=== PATIENT | female | born 1955 | race Caucasian/White ===

== ENCOUNTER → 2022-11-03 08:46 | Outpatient (BNVA) | payer MEDICARE, SELFPAY | PROVIDERS: PCP Internal Medicine; Visit Provider Hospitalist | DX: J45.20 Mild intermittent asthma, uncomplicated (principal); J30.9 Allergic rhinitis, unspecified; R05.3 Chronic cough | CPT/HCPCS: 99202 ==

== ENCOUNTER 2023-05-30 08:23 | Outpatient (AMB) | payer MEDICARE, SELFPAY ==
[2023-05-30 08:36] VITALS: BP 126/70; PULSE 82; O2SAT 96; BMI 27.4
--- NOTE | 2023-05-30 08:36 | A.OFFVIS_ITS ---
Intake Vital Signs 05/30/23 08:36 Height 5 ft 7.5 in Weight 177 lb 7.554 oz BMI 27.4 BP 126/70 Blood Pressure Location Lt brachial Position Sitting Pulse 82 Pulse Source Pulse Oximeter Pulse Oximetry (%) 96 Oxygen Delivery Method Room Air Intake Visit Reasons: Asthma Pr Manager Required: No Allergies No Known Allergies Allergy (Verified 05/30/23 08:39) HPI HPI Comments History of Present Illness Details The patient is a 67 year woman with a known history of asthma who is here for a initial evaluation. The patient states that she has had lifelong asthma and allergies. She has received allergy shots for many years by a local photo tube assembler will now is . She is maintained on Singulair and at times she does take Zyrtec specially when she is in [place]. Sometime in May she developed a viral syndrome that resulted in asthma exacerbation. The patient was evaluated by primary care doctor and provide medications and she did recover. Since then she has been doing okay although with the allergies now the springtime she is having significant postnasal drip and cough. The cough is moderate severity. Typically worse when she lies flat. She has tried nasal rinsing before but she had difficulties tolerating it. She does use Flonase although she does not like to use a lot of medications. As far as studies to review she did have PFTs back in 2020 demonstrating small airways disease suggestive of her diagnosis of asthma. Her FEV1 to FVC pre bronchodilators with actually 71% and she did improved to 77% post bronchodilators. Patient also had a chest x-ray demonstrating no acute disease. She did have a sinus x-ray as well demonstrating interval resolution of the air fluid level in the maxillary sinus suggesting previous sinusitis. She does have significant rhinitis and asthma although she denies any eczema to suggest atopy. 05/30/2023 the patient is here for mik blunt follow-up visit. She very well. She has not had to use her rescue inhaler. She does continue to use her Singulair every night. She does complaint of a persistent cough. She actually does mi to much disease gotten better but her always is concerned about it. Her cough still tends to be worse at nighttime specially when she lays flat. Is consistent with an upper airway cough syndrome. The patient does have a septal deviation and also significant postnasal drip. She does have nasal sprays that she uses as needed. Seems like she is doing okay right now. She does use cough drops which time to help. I do believe for the upper airway cough syndrome she consider Sudafed if her blood pressure can tolerate it in addition to that the use of Tessalon Perles may also be helpful. I did give her a script that she can get failed with good Rx card. No recent imaging to rev iew. Clinically the patient is doing well. We did talk about vaccines. She needs to make sure she gets her flu shot and make sure she is up-to-date with her pneumonia shot she is going to see her primary care doctor tomorrow. [facility] Medical History (Updated 11/05/22 @ 21:37 by Mitchel Vincent MD) Cough Chronic allergic rhinitis Asthma Social History (Updated 11/03/22 @ 08:55 by LORENZO Smith) Patient Tobacco Use Status: Former Tobacco user Tobacco use type: Cigarette Years Smoked: 10 Years Review of Systems Const Denies fever(s) Eyes Denies change in vision ENT Reports nasal congestion, Reports nasal discharge and Reports post nasal drip Card Denies chest pain Resp Reports cough GI Reports dyspepsia Musc Reports no additional complaints Skin/Breast Denies rash Neuro Reports no additional complaints Jesus Manuel/Lymph Denies lymphadenopathy Physical Exam Vital Signs: Last Vital Signs Pulse 82 05/30/23 08:36 BP 126/70 05/30/23 08:36 Pulse Ox 96 05/30/23 08:36 Oxygen Delivery Method Room Air 05/30/23 08:36 BMI result Body Mass Index 27.4 Const General: comfortable HEENT Head: Yes normocephalic Throat: Yes posterior oropharynx abnormal and Yes postnasal drainage Eyes General: appearance normal, both eyes and all related structures Neck Neck: Yes supple Chest Chest palpation & inspection: normal inspection of the chest Resp Effort & Inspection: normal respiratory effort Auscultation: clear to auscultation bilaterally and no wheezes Cardio Rate: regular rate Rhythm: regular rhythm Heart sounds: S1 normal heart sound present and S2 normal heart sound present GI Palpation (GI): Soft to palpation Skin General skin exam: no rashes or lesions noted Extrem General: Yes no clubbing, cyanosis or edema Assessment & Plan Assessment & Plan (1) Asthma: Code(s): J45.909 - Unspecified asthma, uncomplicated Qualifiers: Asthma complication type: uncomplicated Asthma persistence: intermittent Asthma severity: mild Qualified Code(s): J45.20 - Mild intermittent asthma, uncomplicated (2) Chronic allergic rhinitis: Code(s): J30.9 - Allergic rhinitis, unspecified (3) Cough: Code(s): R05.9 - Cough, unspecified Qualifiers: Cough type: chronic Qualified Code(s): R05.3 - Chronic cough Plan FRANCESCO as needed tessalon pearls as needed continue singulair continue Fluticasone nasal spray continue Astelin nasal spray consider Nasal rinsing, stop if minimal return due to nasal septal deviation Needs her flu shots and make sure she is up to date with her pneumonia vaccine F/U 12-18 months Medications: New benzonatate 200 mg PO BID 30 days PRN 30 caps 0RF cough benzonatate 200 mg PO BID 30 days PRN 30 caps 6RF cough Coding Level of Care Code Est Pt Level 4 (11266) Diagnoses Mild intermittent asthma without complication J45.20 Asthma complication type: uncomplicated Asthma persistence: intermittent Asthma severity: mild Chronic allergic rhinitis J30.9 Chronic cough R05.3 Cough type: chronic Time Spent (min) 17
== END 2023-05-30 08:54 | disposition home or self-care (01) ==
PROVIDERS: PCP Internal Medicine; Visit Provider Hospitalist
DX: J45.20 Mild intermittent asthma, uncomplicated (principal); J30.9 Allergic rhinitis, unspecified; R05.3 Chronic cough
CPT/HCPCS: 99214

== ENCOUNTER → 2023-05-30 08:23 | Outpatient (BNVA) | payer MEDICARE, SELFPAY | PROVIDERS: PCP Internal Medicine; Visit Provider Hospitalist | DX: J45.20 Mild intermittent asthma, uncomplicated (principal); J30.9 Allergic rhinitis, unspecified; R05.3 Chronic cough | CPT/HCPCS: 99212 ==

== ENCOUNTER 2025-01-05 08:35 | Outpatient (AMB) | payer MEDICARE, SELFPAY ==
[2025-01-05 08:37] VITALS: BP 110/70; PULSE 75; O2SAT 95; BMI 28.9
--- NOTE | 2025-01-05 08:37 | MHC.OFFVIS ---
Vital Signs 01/05/25 08:37 Height 5 ft 7.5 in Weight 187 lb 6.287 oz BMI 28.9 BP 110/70 Blood Pressure Location Lt brachial Position Sitting Pulse 75 Pulse Source Pulse Oximeter Pulse Oximetry (%) 95 Oxygen Delivery Method Room Air Intake Visit Reasons: Asthma Sap Hana Architect Required: No Accompanied by: Self / Same As Patient Allergies No Known Allergies Allergy (Verified 01/05/25 08:41) HPI Comments Details: The patient is a 69 year woman with a known history of asthma who is here for a initial evaluation. The patient states that she has had lifelong asthma and allergies. She has received allergy shots for many years by a local electrical cad technician will now is . She is maintained on Singulair and at times she does take Zyrtec specially when she is in [place]. Sometime in May she developed a viral syndrome that resulted in asthma exacerbation. The patient was evaluated by primary care doctor and provide medications and she did recover. Since then she has been doing okay although with the allergies now the springtime she is having significant postnasal drip and cough. The cough is moderate severity. Typically worse when she lies flat. She has tried nasal rinsing before but she had difficulties tolerating it. She does use Flonase although she does not like to use a lot of medications. As far as studies to review she did have PFTs back in 2020 demonstrating small airways disease suggestive of her diagnosis of asthma. Her FEV1 to FVC pre bronchodilators with actually 71% and she did improved to 77% post bronchodilators. Patient also had a chest x-ray demonstrating no acute disease. She did have a sinus x-ray as well demonstrating interval resolution of the air fluid level in the maxillary sinus suggesting previous sinusitis. She does have significant rhinitis and asthma although she denies any eczema to suggest atopy. 05/30/2023 the patient is here for pulmonary follow-up visit. She very well. She has not had to use her rescue inhaler. She does continue to use her Singulair every night. She does complaint of a persistent cough. She actually does mi to much disease gotten better but her always is concerned about it. Her cough still tends to be worse at nighttime specially when she lays flat. Is consistent with an upper airway cough syndrome. The patient does have a septal deviation and also significant postnasal drip. She does have nasal sprays that she uses as needed. Seems like she is doing okay right now. She does use cough drops which time to help. I do believe for the upper airway cough syndrome she consider Sudafed if her blood pressure can tolerate it in addition to that the use of Tessalon Perles may also be helpful. I did give her a script that she can get failed with good Rx card. No recent imaging to review. Clinically the patient is doing well. We did talk about vaccines. She needs to make sure she gets her flu shot and make sure she is up-to-date with her pneumonia shot she is going to see her primary care doctor tomorrow. 01/05/2025 the patient is here for pulmonary follow-up visit. Since we last spoke the patient has had a worsening cough for the last several months. It started in [place] back in the winter and has not subsided. Moderate severity. For the most part nonproductive cough. She feels she does have raspiness of the voice. She does have significant nasal congestion. She did go her see her primary care doctor when she arrived from [place] and he she was diagnosed with sinusitis. She was given a course of amoxicillin and also some prednisone. She had been already on a couple courses of prednisone. Not significantly better. She also has not been able to use her respiratory therapy since she did not get her inhaler approve. On exam she does have significant postnasal drip. The patient will start treatment for chronic rhinitis and upper airway cough syndrome with Sudafed and also continue her Zyrtec. She should start fluticasone nasal spray. Will go ahead and start her on Dulera for her asthma. The patient will follow-up in a 3 months. If she is not better she will call for further evaluation. [facility] Medical History (Updated 11/05/22 @ 21:37 by Mitchel Vincent MD) Cough Chronic allergic rhinitis Asthma Social History Patient Tobacco Use Status: Former Tobacco user Tobacco use type: Cigarette Years Smoked: 10 Years Review of Systems Const Denies fever(s) Eyes Denies change in vision ENT Reports nasal congestion, Reports nasal discharge and Reports post nasal drip Card Denies chest pain Resp Reports cough GI Reports dyspepsia Musc Reports no additional complaints Skin/Breast Denies rash Neuro Reports no additional complaints Jesus Manuel/Lymph Denies lymphadenopathy Physical Exam Vital Signs: Last Vital Signs Pulse 75 01/05/25 08:37 BP 110/70 01/05/25 08:37 Pulse Ox 95 01/05/25 08:37 Oxygen Delivery Method Room Air 01/05/25 08:37 BMI result Body Mass Index 28.9 Const General: comfortable HEENT Head: Yes normocephalic Throat: Yes posterior oropharynx abnormal and Yes postnasal drainage Eyes General: appearance normal, both eyes and all related structures Neck Neck: Yes supple Chest Chest palpation & inspection: normal inspection of the chest Resp Effort & Inspection: normal respiratory effort Auscultation: clear to auscultation bilaterally and no wheezes Cardio Rate: regular rate Rhythm: regular rhythm Heart sounds: S1 normal heart sound present and S2 normal heart sound present GI Palpation (GI): Soft to palpation Skin General skin exam: no rashes or lesions noted Extrem General: Yes no clubbing, cyanosis or edema Assessment & Plan Assessment & Plan (1) Asthma: Code(s): J45.909 - Unspecified asthma, uncomplicated Category: Medical Qualifiers: Asthma complication type: uncomplicated Asthma persistence: intermittent Asthma severity: mild Qualified Code(s): J45.20 - Mild intermittent asthma, uncomplicated (2) Chronic allergic rhinitis: Code(s): J30.9 - Allergic rhinitis, unspecified Category: Medical (3) Cough: Code(s): R05.9 - Cough, unspecified Category: Medical Qualifiers: Cough type: chronic Qualified Code(s): R05.3 - Chronic cough Plan FRANCESCO as needed tessalon pearls as needed continue singulair continue Fluticasone nasal spray start pseudophed start Doxycycline start Dulera HFA F/U 3-4 months Medications: New fluticasone propionate 50 mcg/actuation (Flonase Allergy Relief) administer into each nostril 2 sprays intranasal DAILY 15.8 mL 12RF 30 days codeine-guaifenesin 10-100 mg/5 mL 10 mL PO Q6H PRN 300 mL 0RF cough 10 days mometasone-formoterol 100-5 mcg/actuation (Dulera) 2 puffs inhalation Q12H 13 grams 11RF 30 days doxycycline monohydrate 100 mg PO BID 28 tabs 0RF 14 days pseudoephedrine HCl ER 120 mg PO Q12H 60 tabs 1RF 30 days Refilled benzonatate 200 mg PO BID PRN 30 caps 6RF cough 30 days Coding Level of Care Code Est Pt Level 4 (57930) Diagnoses Mild intermittent asthma without complication J45.20 Asthma complication type: uncomplicated Asthma persistence: intermittent Asthma severity: mild Chronic allergic rhinitis J30.9 Chronic cough R05.3 Cough type: chronic Time Spent (min) 16
--- OUTSIDE RECORDS SUMMARY | 2025-01-05 08:44 | XMS_ITS | Clinical Summary ---
Author Organization [facility] Address [address] [place] [address] Phone Care Team Providers Care Dials Inspector Name Role Phone Maxwell Landon MD Primary Care Provider [phone] Encounters Date Type Department Care Team Description 10/24/2024 9:19 AM EDT - 10/24/2024 11:59 PM EDT Hospital Encounter [facility] Bone Density [address] [place] [address] Age-related osteoporosis without current pathological fracture Discharge Disposition: Home or Self Care from Last 3 Months Social History Tobacco Use Types Packs/Day Years Used Date Smoking Tobacco: Never Assessed Comments Unknown Sex and Gender Information Value Date Recorded Sex Assigned at Female 06/06/2024 8:56 AM EST Legal Sex Female 10:40 AM EST Gender Identity Female 06/06/2024 8:56 AM EST Sexual Orientation Straight 06/06/2024 8: 56 AM EST Plan of Treatment Health Maintenance Due Date Last Done Comments DTaP,Tdap,and Td Vaccines (1 - Tdap) 1974 Pneumococcal Vaccine: 50+ Years (1 of 1 - PCV) 09/07/2003 Colorectal Cancer Screening: Colonoscopy 05/22/2022 Falls Risk Assessment 05/22/2022 Hepatitis C Screening 05/22/2022 Medicare Annual Wellness Visit 05/22/2022 Social Influencers of Health Screening 05/22/2022 COVID-19 Vaccine ( season) 2024 10/20/2020, 09/12/2020 Depression Screening 06/18/2024 Influenza Vaccine (#1) 2025 4, 05/31/2023, 02/20/2019, Additional history exists Breast Cancer Screening 03/12/2026 03/12/20 24, 03/09/2023, 03/06/2022, Additional history exists RSV Immunization Adult Patients (1 - 1-dose 75+ series) 2028 Osteoporosis Screening (Bone Density Screening) 10/24/2034 10/24/2024, 03/06/2022 Zoster Vaccines Completed 07/16/2018, 01/31/2018 HIB Vaccines Aged Out No longer eligi ble based on patient's age to complete this topic HPV Vaccines Aged Out No longer eligi ble based on patient's age to complete this topic Hepatitis A Vaccines Aged Out No long er eligible based on patient's age to complete this topic Hepatitis B Vaccines Aged Out No long er eligible based on patient's age to complete this topic IPV Vaccines Aged Out No longer eligi ble based on patient's age to complete this topic MMR Vaccines Aged Out No longer eligi ble based on patient's age to complete this topic Meningococcal ACWY Vaccine Aged Out N o longer eligible based on patient's age to complete this topic Meningococcal B Vaccine Aged Out No l onger eligible based on patient's age to complete this topic RSV Immunization Patients Under 20 months Aged Out No longer eligible based on patient's age to complete this topic Varicella Vaccines Aged Out No longer eligible based on patient's age to complete this topic Procedures Procedure Name Priority Date/Time Associated Diagnosis Comments BD BONE DENSITY DXA AXIAL SKELETON Routine 10/24/2024 9:45 AM EDT Age-related osteoporosis without current pathological fracture RENETTA SCREENING DIGITAL Routine 03/12/2024 11:32 AM EDT Encounter for screening mammogram for malignant neoplasm of breast from Last 3 Months or Most Recently Relevant to Health Maintenance Results * BD Bone Density DXA Axial Skeleton (10/24/2024 9:45 AM EDT) Anatomical Region Laterality Modality Wrist, Hip, L-spine Bone Densito metry 10/24/2024 11:3 3 AM EDT Impressions 10/24/2024 11:34 AM EDT 1. Osteopenia. There has been an increase of 2.1% in bone mineral density in the lumbar spine since the prior examination of 03/06/2022. There has been a decrease of 0.7% in bone mineral density in the right femur and an increase of 3.1% in bone mineral density in the left femur. 2. FRAX analysis yields a 10-year probability of major osteoporotic fracture of 14.5% and a 10-year probability of hip fracture of 1.7%. Code 32587 -------- FINAL REPORT -------- Dictated By: Radhames Negron Dictated Date: 10/24/2024 11:33 ET Assigned Physician: Radhames Negron Reviewed and Electronically Signed By: Radhames Negron Signed Date: 10/24/2024 11:34 ET Workstation ID: [id number] Transcribed By: Self Edit Transcribed Date: 10/24/2024 11:33 ET Narrative 10/24/2024 11:34 AM EDT HISTORY: The patient is a 69-year-old postmenopausal female with clinical concern for metabolic bone disease. FINDINGS: Dual energy x-ray absorptiometry of the lumbar spine and femurs is performed. The mean bone mineral density at L1-2 is 1.188 gm/cm2 which is 102% of that of young normals and 114% of that of age matched controls. This yields a T-score of 0.2 and a Z-score of 1.3 and there is therefore no evidence of osteoporosis or osteopenia here. The mean bone mineral density of the femurs bilaterally is 0.975 gm/cm2 which is 97% of that of young normals and 112% of that of age matched controls. This yields a T-score of -0.3 and a Z-score of 0.8 and there is therefore no evidence of osteoporosis or osteopenia here. However, the T-score of the right femoral neck is -1.2 and that of the left femoral neck is -1.4 which is diagnostic of osteopenia. Procedure Note Radhames Negron MD - 10/24/2024 HISTORY: The patient is a 69-year-old postmenopausal female with clinicalconcern for metabolic bone disease. FINDINGS: Dual energy x-ray absorptiometry of the lumbar spine and femursis performed. The mean bone mineral density at L1-2 is 1.188 gm/cm2 whichis 102% of that of young normals and 114% of that of age matched controls.This yields a T-score of 0.2 and a Z-score of 1.3 and there is thereforeno evidence of osteoporosis or osteopenia here. The mean bone mineral density of the femurs bilaterally is 0.975 gm/md6kgntq is 97% of that of young normals and 112% of that of age matchedcontrols. This yields a T-score of -0.3 and a Z-score of 0.8 and there istherefore no evidence of osteoporosis or osteopenia here. However, theT-score of the right femoral neck is -1.2 and that of the left femoralneck is -1.4 which is diagnostic of osteopenia. IMPRESSION: 1. Osteopenia. There has been an increase of 2.1% in bone mineral densityin the lumbar spine since the prior examination of 03/06/2022. There hasbeen a decrease of 0.7% in bone mineral density in the right femur and anincrease of 3.1% in bone mineral density in the left femur. 2. FRAX analysis yields a 10-year probability of major osteoporoticfracture of 14.5% and a 10-year probability of hip fracture of 1.7%. Code 19804 -------- FINAL REPORT -------- Dictated By: Radhames Negron Dictated Date: 10/24/2024 11:33 ET Assigned Physician: Radhames Negron Reviewed and Electronically Signed By: Radhames Negron Signed Date: 10/24/2024 11:34 ET Workstation ID: [id number] Transcribed By: Self Edit Transcribed Date: 10/24/2024 11:33 ET Maxwell Landon MD IMG DXA PROCEDURES Final Res ult * RENETTA SCREENING DIGITAL (03/12/2024 11:32 AM EDT) Anatomical Region Laterality Modality Mammography 03/12/2024 8:28 AM EDT Narrative 03/12/2024 11:32 AM EDT [facility] Diagnostic Imaging Department [address] [place] [address] Patient: TAN SIMMONS /Age/Sex: 1955 - 68 - F Unit#: [id number] Location/Status: SPDIMAM/REG CLI Mnemonic/Ordering Site: [facility] Ordering Physician: MAXWELL LANDNO MD [facility] Screening Digital - 03/12/24 - 50 Report Status:Signed EXAM: [facility] Screening Digital EXAM DATE AND TIME: 03/12/2024 8:50 AM HISTORY: Screening. Paternal cousin had breast carcinoma. COMPARISON: 03/09/23, 03/06/22, 03/02/21 TECHNIQUE: Bilateral digital breast tomosynthesis was performed in the CC and MLO projections. Computer aided detection with Needle 3D 3.1 was employed. TISSUE DENSITY: b. There are scattered areas of fibroglandular density. FINDINGS: No suspicious masses, grouped microcalcifications, or areas of architectural distortion are seen. The skin and vascularity are unremarkable. IMPRESSION: Stable mammographic appearance of the breasts. No evidence of malignancy is seen. A negative mammogram in the presence of a clinically suspicious palpable abnormality does not preclude the possibility of malignancy or alter the indications for biopsy. BI-RADS: Category 1: Negative RECOMMENDATION(S): 1: Routine screening mammogram BILATERAL in 1 year. Mammogram performed at [facility] [place] [id number] Dictating Physician: FIORELLA HUGHES MD Electronically Signed by: FIORELLA HUGHES MD Dic Date/Time: 03/12/24 1132 Sign date/Time: 03/12/24 1132 Procedure Note Fiorella Hughes MD - 04/02/2024 [facility] Diagnostic Imaging Department [address] [place] [id number] Patient: TAN SIMMONS /Age/Sex: 1955 - 68 - F Unit#: [id number] [facility] Mnemonic/Ordering Site: [facility] Ordering Physician: MAXWELL LANDON MD [facility] Screening Digital - 03/12/24 - 0850 Report Status:Signed EXAM: [facility] Screening Digital EXAM DATE AND TIME: 03/12/2024 8:50 AM HISTORY: Screening. Paternal cousin had breast carcinoma. COMPARISON: 03/09/23, 03/06/22, 03/02/21 TECHNIQUE: Bilateral digital breast tomosynthesis was performed in the CCand MLO projections. Computer aided detection with [employer]ulink[employer] AI 3D 3.1was employed. TISSUE DENSITY: b. There are scattered areas of fibroglandular density. FINDINGS: No suspicious masses, grouped microcalcifications, or areas ofarchitectural distortion are seen. The skin and vascularity are unremarkable. IMPRESSION: Stable mammographic appearance of the breasts. No evidence of malignancyis seen. A negative mammogram in the presence of a clinically suspicious palpable abnormality does not preclude the possibility of malignancy or alter the indications for biopsy. BI-RADS: Category 1: Negative RECOMMENDATION(S): 1: Routine screening mammogram BILATERAL in 1 year. [facility] performed at [facility] [address] [address] Dictating Physician: FIORELLA HUGHES MD Electronically Signed by: FIORELLA HUGHES MD Dic Date/Time: 03/12/24 1132 Sign date/Time: 03/12/24 1132 Maxwell Landon MD IMG BI PROCEDURES Final Resu lt from Last 3 Months or Most Recently Relevant to Health Maintenance Insurance MEDICARE [facility] Care Teams Dials Inspector Relationship Specialty Start Date End Date Maxwell Landon MD [address] [place] [address] PCP - General Internal Medicine 06/06/24
== END 2025-01-05 09:14 | disposition home or self-care (01) ==
LOC: HO.HPS 08:35
PROVIDERS: PCP Internal Medicine; Visit Provider Hospitalist
DX: J45.20 Mild intermittent asthma, uncomplicated (principal); J30.9 Allergic rhinitis, unspecified; R05.3 Chronic cough
CPT/HCPCS: 99214

== ENCOUNTER → 2025-01-05 08:35 | Outpatient (BNVA) | payer MEDICARE, SELFPAY | PROVIDERS: PCP Internal Medicine; Visit Provider Hospitalist | DX: J45.20 Mild intermittent asthma, uncomplicated (principal); J30.9 Allergic rhinitis, unspecified; R05.3 Chronic cough; Z87.891 Personal history of nicotine dependence | CPT/HCPCS: 99212 ==

== ENCOUNTER 2025-03-18 10:45 | Outpatient (AMB) | payer MEDICARE, SELFPAY ==
[2025-03-18 10:47] VITALS: BP 134/66; PULSE 77; O2SAT 97; BMI 28.7
--- NOTE | 2025-03-18 10:47 | MHC.OFFVIS ---
Vital Signs 03/18/25 10:47 Height 5 ft 7.5 in Weight 186 lb 4.65 oz BMI 28.7 BP 134/66 Blood Pressure Location Lt brachial Position Sitting Pulse 77 Pulse Source Pulse Oximeter Pulse Oximetry (%) 97 Oxygen Delivery Method Room Air Intake Visit Reasons: Asthma Validation Intern Required: No Accompanied by: Self / Same As Patient Allergies No Known Allergies Allergy (Verified 03/18/25 10:50) HPI Comments Details: The patient is a 69 year woman with a known history of asthma who is here for a initial evaluation. The patient states that she has had lifelong asthma and allergies. She has received allergy shots for many years by a local radio personality will now is . She is maintained on Singulair and at times she does take Zyrtec specially when she is in [place]. Sometime in May she developed a viral syndrome that resulted in asthma exacerbation. The patient was evaluated by primary care doctor and provide medications and she did recover. Since then she has been doing okay although with the allergies now the springtime she is having significant postnasal drip and cough. The cough is moderate severity. Typically worse when she lies flat. She has tried nasal rinsing before but she had difficulties tolerating it. She does use Flonase although she does not like to use a lot of medications. As far as studies to review she did have PFTs back in 2020 demonstrating small airways disease suggestive of her diagnosis of asthma. Her FEV1 to FVC pre bronchodilators with actually 71% and she did improved to 77% post bronchodilators. Patient also had a chest x-ray demonstrating no acute disease. She did have a sinus x-ray as well demonstrating interval resolution of the air fluid level in the maxillary sinus suggesting previous sinusitis. She does have significant rhinitis and asthma although she denies any eczema to suggest atopy. 05/30/2023 the patient is here for pulmonary follow-up visit. She very well. She has not had to use her rescue inhaler. She does continue to use her Singulair every night. She does complaint of a persistent cough. She actually does mi to much disease gotten better but her always is concerned about it. Her cough still tends to be worse at nighttime specially when she lays flat. Is consistent with an upper airway cough syndrome. The patient does have a septal deviation and also significant postnasal drip. She does have nasal sprays that she uses as needed. Seems like she is doing okay right now. She does use cough drops which time to help. I do believe for the upper airway cough syndrome she consider Sudafed if her blood pressure can tolerate it in addition to that the use of Tessalon Perles may also be helpful. I did give her a script that she can get failed with good Rx card. No recent imaging to review. Clinically the patient is doing well. We did talk about vaccines. She needs to make sure she gets her flu shot and make sure she is up-to-date with her pneumonia shot she is going to see her primary care doctor tomorrow. 01/05/2025 the patient is here for pulmonary follow-up visit. Since we last spoke the patient has had a worsening cough for the last several months. It started in [place] back in the winter and has not subsided. Moderate severity. For the most part nonproductive cough. She feels she does have raspiness of the voice. She does have significant nasal congestion. She did go her see her primary care doctor when she arrived from [place] and he she was diagnosed with sinusitis. She was given a course of amoxicillin and also some prednisone. She had been already on a couple courses of prednisone. Not significantly better. She also has not been able to use her respiratory therapy since she did not get her inhaler approve. On exam she does have significant postnasal drip. The patient will start treatment for chronic rhinitis and upper airway cough syndrome with Sudafed and also continue her Zyrtec. She should start fluticasone nasal spray. Will go ahead and start her on Dulera for her asthma. The patient will follow-up in a 3 months. If she is not better she will call for further evaluation. 03/18/2025 the patient is here for pulmonary follow-up visit. Since we last spoke the patient has been doing okay except that she was a spoke she was sick contact from a grandchildren. She started developing nasal congestion stuffy nose and cough. She was not sure if his allergies or sickness. Denies any fevers or chills. She is expectorating some phlegm. Yellowish in color. She has been using her inhaler with good effect. Although the Dulera is very expensive. Will go ahead and send her Symbicort we can also consider Wixela if does not covered. We will just have to find her something little bit more cost effective for her. She does respond well to the combination inhaler. In the meantime the last time I did give her some doxycycline she did end up taking it. She is going to monitor her symptoms for the next 24:48 hours if she is not better she can always take it. She can also use Mucinex as needed. The patient does have nasal congestion. She needs to start her nasal sprays and continue her allergy medicine. Hopefully she is going to go to [place] for few months and then she usually feels better there. Will follow-up sometime the end of May before she goes to [place]. [facility] Medical History (Updated 03/18/25 @ 22:08 by Mitchel Vincent MD) Bronchitis URI (upper respiratory infection) Cough Chronic allergic rhinitis Asthma Social History Patient Tobacco Use Status: Former Tobacco user Tobacco use type: Cigarette Years Smoked: 10 Years Review of Systems Const Denies fever(s) Eyes Denies change in vision ENT Reports vertigo, Reports dizziness, Reports nasal congestion, Reports nasal discharge, Reports post nasal drip and Reports sinus pressure Card Denies chest pain Resp Reports chest congestion and Reports cough GI Reports dyspepsia Musc Reports no additional complaints Skin/Breast Denies rash Neuro Reports no additional complaints, Reports vertigo and Reports dizziness Jesus Manuel/Lymph Denies lymphadenopathy Physical Exam Vital Signs: Last Vital Signs Pulse 77 03/18/25 10:47 BP 134/66 03/18/25 10:47 Pulse Ox 97 03/18/25 10:47 Oxygen Delivery Method Room Air 03/18/25 10:47 BMI result Body Mass Index 28.7 Const General: comfortable HEENT Head: Yes normocephalic Ears: TM abnormal retracted bilateral Throat: Yes posterior oropharynx abnormal and Yes postnasal drainage Eyes General: appearance normal, both eyes and all related structures Neck Neck: Yes supple Chest Chest palpation & inspection: normal inspection of the chest Resp Effort & Inspection: normal respiratory effort Auscultation: clear to auscultation bilaterally and no wheezes Cardio Rate: regular rate Rhythm: regular rhythm Heart sounds: S1 normal heart sound present and S2 normal heart sound present GI Palpation (GI): Soft to palpation Skin General skin exam: no rashes or lesions noted Extrem General: Yes no clubbing, cyanosis or edema Assessment & Plan Assessment & Plan (1) Asthma: Code(s): J45.909 - Unspecified asthma, uncomplicated Category: Medical Qualifiers: Asthma complication type: uncomplicated Asthma persistence: intermittent Asthma severity: mild Qualified Code(s): J45.20 - Mild intermittent asthma, uncomplicated (2) Chronic allergic rhinitis: Code(s): J30.9 - Allergic rhinitis, unspecified Category: Medical (3) Cough: Code(s): R05.9 - Cough, unspecified Category: Medical Qualifiers: Cough type: chronic Qualified Code(s): R05.3 - Chronic cough (4) URI (upper respiratory infection): Code(s): J06.9 - Acute upper respiratory infection, unspecified Category: Medical Qualifiers: URI type: unspecified viral URI Qualified Code(s): J06.9 - Acute upper respiratory infection, unspecified (5) Bronchitis: Code(s): J40 - Bronchitis, not specified as acute or chronic Category: Medical Plan FRANCESCO as needed tessalon pearls as needed continue singulair continue Fluticasone nasal spray cotinue Dulera HFA-->change to Symbicort/breo or Wixela when she completes it mucinex Afrin x 5 days Meclezine as needed start Doxycycline if worsens F/U 4-6 months Medications: New fluticasone propionate 50 mcg/actuation 2 sprays intranasal DAILY 15.8 mL 11RF 30 days J31.0 - Chronic rhinitis benzonatate 200 mg PO BID PRN 30 caps 6RF cough 30 days oxymetazoline 0.05% (Afrin (oxymetazoline)) 2 sprays intranasal Q12H PRN 22 mL 0RF nasal congestion 5 days fluticasone propion-salmeterol 250-50 mcg/dose (Wixela Inhub) 1 inh inhalation Q12H 60 ea 11RF 30 days budesonide-formoterol 160-4.5 mcg/actuation (Symbicort) 2 puffs inhalation BID 10.2 grams 11RF 30 days J44.89 - Other specified chronic obstructive pulmonary disease meclizine 12.5 mg PO TID PRN 20 tabs 0RF dizziness 14 days Coding Level of Care Code Est Pt Level 4 (87066) Complex EM visit Add On G2211 Diagnoses Mild intermittent asthma without complication J45.20 Asthma complication type: uncomplicated Asthma persistence: intermittent Asthma severity: mild Chronic allergic rhinitis J30.9 Chronic cough R05.3 Cough type: chronic Viral upper respiratory tract infection J06.9 URI type: unspecified viral URI Bronchitis J40 Time Spent (min) 16
--- OUTSIDE RECORDS SUMMARY | 2025-03-18 12:19 | XMS_ITS | Clinical Summary ---
Author Organization [facility] Address [address] [place] [address] Phone Care Team Providers Care Corrosion Control Technician Name Role Phone Maxwell Landon MD Primary Care Provider Social History Tobacco Use Types Packs/Day Years Used Date Smoking Tobacco: Never Assessed Comments Unknown Sex and Gender Information Value Date Recorded Sex Assigned at Female 06/06/2024 8:56 AM EST Legal Sex Female 10:40 AM EST Gender Identity Female 06/06/2024 8:56 AM EST Sexual Orientation Straight 06/06/2024 8: 56 AM EST Plan of Treatment Health Maintenance Due Date Last Done Comments Colorectal Cancer Screening: Colonoscopy 1955 DTaP,Tdap,and Td Vaccines (1 - Tdap) 1972 Pneumococcal Vaccine: 50+ Years (1 of 1 - PCV) 09/07/2003 Falls Risk Assessment 05/22/2022 Hepatitis C Screening 05/22/2022 Medicare Annual Wellness Visit 05/22/2022 Social Influencers of Health Screening 05/22/2022 Depression Screening 06/18/2024 COVID-19 Vaccine ( season) 2025 10/20/2020, 09/12/2020 Influenza Vaccine (#1) 2025 , 05/31/2023, 02/20/2019, Additional history exists Breast Cancer [...] probability of hip fracture of 1.7%. Code 05213 -------- FINAL REPORT -------- Dictated By: Radhames Negron Dictated Date: 10/24/2024 11:33 ET Assigned Physician: Radhames Negron Reviewed and Electronically Signed By: Radhames Negron Signed Date: 10/24/2024 11:34 ET Workstation ID: [id number] Transcribed By: Self Edit Transcribed Date: 10/24/2024 [...] density of the femurs bilaterally is 0.975 gm/ny9fmjro is 97% of that of young normals [...] probability of hip fracture of 1.7%. Code 43098 -------- FINAL REPORT -------- Dictated By: Radhames Negron Dictated Date: 10/24/2024 11:33 ET Assigned Physician: Radhames Negron Reviewed and Electronically Signed By: Radhames Negron Signed Date: 10/24/2024 11:34 ET Workstation ID: [id number] Transcribed By: Self Edit Transcribed Date: 10/24/2024 11:33 ET Maxwell Landon MD IMG DXA PROCEDURES Final Res ult * [facility] SCREENING DIGITAL (03/12/2024 11:32 AM EDT) Anatomical Region Laterality Modality Mammography 03/12/2024 8:28 AM EDT Narrative 03/12/2024 11:32 AM EDT [facility] Diagnostic Imaging Department [address] [place] [address] Patient: TAN SIMMONS/Age/Sex: 1955 - 68 - F Unit#: [id number] Location/Status: SPDIMAM/REG CLI Mnemonic/Ordering Site: [facility] Ordering Physician: MAXWELL LANDON MD [facility] Screening Digital - 03/12/24 - 0850 Report Status:Signed EXAM: [facility] Screening Digital EXAM DATE AND TIME: 03/12/2024 8:50 AM HISTORY: Screening. Paternal cousin had breast carcinoma. COMPARISON: 03/09/23, 03/06/22, 03/02/21 TECHNIQUE: Bilateral digital breast tomosynthesis was performed in the CC and MLO projections. Computer aided detection with ListMinut 3D 3.1 was employed. TISSUE DENSITY: b. [...] Mamm[facility] performed at [facility] [address] [place] [address] Dictating Physician: FIORELLA HUGHES MD Electronically Signed by: FIORELLA HUGHES MD Dic Date/Time: 03/12/24 1132 Sign date/Time: 03/12/24 1132 Procedure Note Fiorella Hughes MD - 04/02/2024 [facility] Diagnostic Imaging Department [address] [place] [address] Patient: TAN SIMMONS /Age/Sex: 1955 - 68 - F Unit#: [id number] Location/Status: SPDIMAM/REG CLI Mnemonic/Ordering Site: [facility] Ordering Physician: MAXWELL LANDON MD [facility] Screening Digital - 03/12/24 - 0850 Report Status:Signed EXAM: [facility] Screening Digital EXAM DATE AND TIME: 03/12/2024 8:50 AM HISTORY: Screening. Paternal cousin had breast carcinoma. COMPARISON: 03/09/23, 03/06/22, 03/02/21 TECHNIQUE: Bilateral digital breast tomosynthesis was performed in the CCand MLO projections. Computer aided detection with [employer] 3D 3.1was employed. TISSUE DENSITY: b. There [...] Mammogram performed at [facility] [place] [address] Dictating Physician: FIORELLA HUGHES MD Electronically Signed by: FIORELLA HUGHES MD Dic Date/Time: 03/12/24 1132 Sign date/Time: 03/12/24 1132 Maxwell Landon MD IMG BI PROCEDURES Final Resu lt from Last 3 Months or Most Recently Relevant to Health Maintenance Insurance MEDICARE [facility] Care Teams Corrosion Control Technician Relationship Specialty Start Date End Date Maxwell Landon MD [address] [place] [id number] PCP - General Internal Medicine 06/06/24
--- OUTSIDE RECORDS SUMMARY | 2025-03-18 12:19 | XMS_ITS | Encounter Summary ---
Author Organization [facility] Address [address] [place] [address] Care Team Providers Care Gas Meter Installer Name Role Phone Unavailable Primary Care Provider Unavailabl e Reason for Referral * ENT (Routine) - Pending Review Specialty Diagnoses / Procedures Referred By Contac t Referred To Contact Otolaryngology Diagnoses Recurrent vertigo Will Martinez MD [address] [place] [address] Phone: tel: fax: [facility] [address] [address] Phone: tel: fax: Referral ID Status Reason Start Date Expiration Date Visits Requested Visits Authorized [id number] Pending Review Consult 03/11/2025 03/12/2026 1 1 Encounter Details Date Type Department Care Team (Latest Contact Info) Description 03/11/2025 Transcribe Orders [facility] PRIMARY CARE SCAN Will Martinez MD [address] [place] [address] Recurrent vertigo (Primary Dx) Social History Tobacco Use Types Packs/Day Years Used Date Smoking Tobacco: Never Assessed Comments Unknown Sex and Gender Information Value Date Recorded Sex Assigned at Not on file Legal Sex Female 10:15 AM EDT Gender Identity Not on file Sexual Orientation Not on file documented as of this encounter Plan of Treatment Scheduled Referrals Name Type Priority Associated Diagnoses Order Schedule Ambulatory referral to ENT Outpatient Referral Routine Recurrent vertigo Ordered: 03/11/2025 documented as of this encounter Visit Diagnoses Diagnosis Recurrent vertigo- Primary documented in this encounter
--- OUTSIDE RECORDS SUMMARY | 2025-03-18 12:19 | XMS_ITS | Clinical Summary ---
Author Organization [facility] Address [address] [place] [address] Care Team Providers Care Installer Interior Assemblies Name Role Phone Unavailable Primary Care Provider Unavailabl e Encounters Date Type Department Care Team Description 03/11/2025 Transcribe Orders [facility] PRIMARY CARE SCAN Will Martinez MD Recurrent vertigo (Primary Dx) from Last 3 Months Social History Tobacco Use Types Packs/Day Years Used Date Smoking Tobacco: Never Assessed Comments Unknown Sex and Gender Information Value Date Recorded Sex Assigned at Not on file Legal Sex Female 10:15 AM EDT Gender Identity Not on file Sexual Orientation Not on file Plan of Treatment Health Maintenance Due Date Last Done Comments Advance Care Planning 1955 Hepatitis C Virus Screening 1955 DTaP/Tdap/Td Vaccines (1 - Tdap) 1972 Pneumococcal Vaccines 50+ (1 of 1 - PCV) 09/07/2003 Zoster (Shingles) Vaccine (1 of 2) 09/07/2003 COVID-19 Vaccine ( - 2023-2 5 season) 2025 RSV Vaccine 60 years and old er and Patients (1 - 1-dose 75+ series) 2028 Hepatitis B Vaccines Aged Out No long er eligible based on patient's age to complete this topic
== END 2025-03-18 11:19 | disposition home or self-care (01) ==
LOC: HO.HPS 10:45
PROVIDERS: PCP Internal Medicine; Visit Provider Hospitalist
DX: J45.20 Mild intermittent asthma, uncomplicated (principal); J30.9 Allergic rhinitis, unspecified; R05.3 Chronic cough; J06.9 Acute upper respiratory infection, unspecified; J40 Bronchitis, not specified as acute or chronic
CPT/HCPCS: 99214; G2211

== ENCOUNTER → 2025-03-18 10:45 | Outpatient (BNVA) | payer MEDICARE, SELFPAY | PROVIDERS: PCP Internal Medicine; Visit Provider Hospitalist | DX: J45.20 Mild intermittent asthma, uncomplicated (principal); J30.9 Allergic rhinitis, unspecified; R05.3 Chronic cough; J40 Bronchitis, not specified as acute or chronic; J06.9 Acute upper respiratory infection, unspecified | CPT/HCPCS: 99212 ==

== ENCOUNTER 2025-06-08 14:23 | Outpatient (REF) | payer MEDICARE, SELFPAY ==
[2025-06-08 15:17] LABS: MANUAL DIFF FLAG NO
[2025-06-08 17:14] LABS: Hematocrit 42.1 % (37.0-47.0); Hemoglobin 13.7 g/dl (12.0-16.0); Imm Gran Abs Auto 0.02 X10*3/uL (0.00-0.03); Imm Gran Pct Auto 0.3 % (0.0-0.4); Lymphocytes Absolute Auto 1.7 X10*3/uL (1.2-4.9); Mean Corpuscular HGB Conc 32.5 g/dl (31.0-35.0); Mean Corpuscular Hemoglobin 31.7 pg (27.0-33.0); Mean Corpuscular Volume 97.5 fL (80.0-98.0); NRBC Abs Auto 0.000 X10*3/uL (0.0-0.012); NRBC Pct Auto 0.0 /100WBC (0.0-0.2); Platelet Count 289 X10*3/uL (160-400); Red Blood Count 4.32 X10*6/uL (4.20-5.50); White Blood Count 6.3 X10*3/uL (4.8-10.8)
[2025-06-08 17:42] LABS: Anion Gap 13 (12-20); Blood Urea Nitrogen 18 mg/dL (9-16); Calcium 9.5 mg/dL (8.4-10.2); Carbon Dioxide 27 mmol/L (22-29); Chloride 107 mmol/L (96-108); Estimated Glomerular Filt Rate > 60; Potassium 4.1 mmol/L (3.3-5.1); Sodium 143 mmol/L (135-145)
== END 2025-06-08 14:24 | disposition home or self-care (01) ==
LOC: HO.LAB 14:23
PROVIDERS: PCP Internal Medicine; Visit Provider Hospitalist
DX: J45.20 Mild intermittent asthma, uncomplicated (principal); J44.89 Other specified chronic obstructive pulmonary disease; J40 Bronchitis, not specified as acute or chronic; J31.0 Chronic rhinitis; R91.1 Solitary pulmonary nodule; T78.40XA Allergy, unspecified, initial encounter; R91.8 Other nonspecific abnormal finding of lung field; Z87.891 Personal history of nicotine dependence; Z79.899 Other long term (current) drug therapy; Z01.84 Encounter for antibody response examination
CPT/HCPCS: 36415; 80048; 82784; 82785; 85025; 85652; 86003; 86331; 86606; 86609; 99212

== ENCOUNTER 2025-06-08 14:23 | Outpatient (AMB) | payer MEDICARE, SELFPAY ==
--- OUTSIDE RECORDS SUMMARY | 2025-06-03 23:59 | XMS_ITS | Continuity of Care Document ---
Author Organization [facility] Address [address] [facility] [place] [address]- Care Team Providers Care Technical Stenographer Name Role Phone Will Martinez MD Primary Care Physician [phone] Encounter 05/27/25 - 06/03/25 [facility] [address], [address] [place] [address]- Attending Physician: David Fatima Admitting Physician: David Fatima Referring Physician: David Fatima Encounter Type: OutPatient One Time Results Radiology Reports * Exam Date Time Procedure Performing Provider Status 05/27/25 1:02 PM Sacroiliac Joints Min 3 Views Auth (Verified) Notes: (Sacroiliac Joints Min 3 Views) Reason For Exam: sacrolitis RESULT: Sacroiliac Joints Min 3 Views Sacroiliac Joints Min 3 Views Reason: sacrolitis. COMPARISON: None FINDINGS: No bone lesions or fractures. No arthritic changes of the SI joints. Minimal apparent joint space widening of the left sacroiliac joint however no definite associated bony erosions or subchondral sclerosis. Normal alignment of the sacrum and coccyx. Normal soft tissues. IMPRESSION: No acute abnormality. Minimal apparent joint space widening of the left sacroiliac joint with no definite associated bonyerosions or subchondral sclerosis. No convincing radiographic signs of sacroiliitis. WSN: [id number] Ordering Physician: David Rendon Dictated By: Jeri Thompson MD Dictated Date/Time: 05/28/25 1:22 pm Reviewed By: Jeri Thompson MD Signed By: Jeri Thompson MD Signed Date/Time: 05/28/25 1:22 pm Transcribed By: ANNA Transcribed Date/Time: 05/28/25 12:54 pm Social History Social History Type Response Sex Sex Representation Female (finding) Patient Care team information Care Team Personnel Name: Will Martinez MD Position: [facility] Outreach Member Role: PCP [address]: [address] [place] [id number] [place] [address] Telecom: Care Team Related Persons Name: CASA SIMMONS Insurance Providers Guarantor name: TAN SIMMONS Health Plan Information #: 1 Payer: MEDICARE B Payer Identifier: NA Member Number: [id number] Group Number: NA Subscriber Identifier: [id number] Relationship to Subscriber: self Coverage Type: MEDICARE Coverage Verification Date: NA Telecom: NA Address: Health Plan Information #: 2 Payer: MEDEX SECONDARY ONLY Payer Identifier: NA Member Number: [id number] Group Number: NA Subscriber Identifier: [id number] Relationship to Subscriber: self Coverage Type: Medicare Other Coverage Verification Date: NA Telecom: Address:
[2025-06-08 14:33] VITALS: BP 120/66; PULSE 97; O2SAT 74
--- NOTE | 2025-06-08 14:33 | A.OFFVIS_ITS ---
Vital Signs 06/08/25 14:33 Height 5 ft 7.5 in BMI Reason not done Patient refused/unable BP 120/66 Blood Pressure Location Lt brachial Position Sitting Pulse 97 Pulse Source Pulse Oximeter Pulse Oximetry (%) 74 L Oxygen Delivery Method Room Air Intake Visit Reasons: Asthma Union Contract Representative Required: No Bioengineer: Bioengineer offered & declined Accompanied by: Self / Same As Patient Allergies No Known Allergies Allergy (Verified 06/08/25 14:33) HPI Comments Details: The patient is a 69 year woman with a known history of asthma who is here for a initial evaluation. The patient states that she has had lifelong asthma and allergies. She has received allergy shots for many years by a local housing property manager will now is . She is maintained on Singulair and at times she does take Zyrtec specially when she is in [place]. Sometime in May she developed a viral syndrome that resulted in asthma exacerbation. The patient was evaluated by primary care doctor and provide medications and she did recover. Since then she has been doing okay although with the allergies now the springtime she is having significant postnasal drip and cough. The cough is moderate severity. Typically worse when she lies flat. She has tried nasal rinsing before but she had difficulties tolerating it. She does use Flonase although she does not like to use a lot of medications. As far as studies to review she did have PFTs back in 2020 demonstrating small airways disease suggestive of her diagnosis of asthma. Her FEV1 to FVC pre bronchodilators with actually 71% and she did improved to 77% post bronchodilators. Patient also had a chest x-ray demonstrating no acute disease. She did have a sinus x-ray as well demonstrating interval resolution of the air fluid level in the maxillary sinus suggesting previous sinusitis. She does have significant rhinitis and asthma although she denies any eczema to suggest atopy. 05/30/2023 the patient is here for pulmonary follow-up visit. She very well. She has not had to use her rescue inhaler. She does continue to use her Singul air every night. She does complaint of a persistent cough. She actually does mi to much disease gotten better but her always is concerned about it. Her cough still tends to be worse at nighttime specially when she lays flat. Is consistent with an upper airway cough syndrome. The patient does have a septal deviation and also significant postnasal drip. She does have nasal sprays that she uses as needed. Seems like she is doing okay right now. She does use cough drops which time to help. I do believe for the upper airway cough syndrome she consider Sudafed if her blood pressure can tolerate it in addition to that the use of Tessalon Perles may also be helpful. I did give her a script that she can get failed with good Rx card. No recent imaging to review. Clinically the patient is doing well. We did talk about vaccines. She needs to make sure she gets her flu shot and make sure she is up-to-date with her pneumonia shot she is going to see her primary care doctor tomorrow. 01/05/2025 the patient is here for pulmonary follow-up visit. Since we last spoke the patient has had a worsening cough for the last several months. It started in [place] back in the winter and has not subsided. Moderate severity. For the most part nonproductive cough. She feels she does have raspiness of the voice. She does have significant nasal congestion. She did go her see [facility] when she arrived from [place] and he she was diagnosed with sinusitis. She was given a course of amoxicillin and also some prednisone. She had been already on a couple courses of prednisone. Not significantly better. She also has not been able to use her respiratory therapy since she did not get her inhaler approve. On exam she does have significant postnasal drip. The patient will start treatment for chronic rhinitis and upper airway cough syndrome with Sudafed and also continue her Zyrtec. She should start fluticasone nasal spray. Will go ahead and start her on Dulera for her asthma. The patient will follow-up in a 3 months. If she is not better she will call for further evaluation. 03/18/2025 the patient is here for pulmonary follow-up visit. Since we last s poke the patient has been doing okay except that she was a spoke she was sick contact from a grandchildren. She started developing nasal congestion stuffy nose and cough. She was not sure if his allergies or sickness. Denies any fevers or chills. She is expectorating some phlegm. Yellowish in color. She has been using her inhaler with good effect. Although the Dulera is very expensive. Will go ahead and send her Symbicort we can also consider Wixela if does not covered. We will just have to find her something little bit more cost effective for her. She does respond well to the combination inhaler. In the meantime the last time I did give her some doxycycline she did end up taking it. She is going to monitor her symptoms for the next 24:48 hours if she is not better she can always take it. She can also use Mucinex as needed. The patient does have nasal congestion. She needs to start her nasal sprays and continue her allergy medicine. Hopefully she is going to go to [place] for few months and then she usually feels better there. Will follow-up sometime the end of May before she goes to [place]. 06/08/2025 the patient is here for pulmonary follow-up visit. Overall the patient has been doing okay. She is still coughing still feels uncomfortable. Moderate severity. The inhalers have not been very helpful in the nasal sprays either. She does not feel like she gets enough relief to be able to have a good quality of life. She does have the postnasal drip. She did have allergy shots in the past. She does not want to do allergy shots again. Will be reasonable to check her allergy levels and see if she is a candidate for biologics such as Xolair. She will continues use her respiratory therapy at this time. The patient also had pulmonary function studies few years back. Her FEV1 to FVC was only 71% pre bronchodilators and 77% post bronchodilators. The patient did have small airways disease consistent with a diagnosis of asthma. Therefore, is not unreasonable to consider biologics specially if she continues to be symptomatic. [facility] Medical History (Updated 06/08/25 @ 22:00 by Mitchel Vincent MD) Allergies Bronchitis URI (upper respiratory infection) Cough Chronic allergic rhinitis Asthma Social History Patient Tobacco Use Status: Former Tobacco user Tobacco use type: Cigarette Years Smoked: 10 Years Review of Systems Const Denies fever(s) Eyes Denies change in vision ENT Reports vertigo, Reports dizziness, Reports nasal congestion, Reports nasal discharge, Reports post nasal drip and Reports sinus pressure Card Denies chest pain Resp Denies chest congestion and Reports cough GI Reports dyspepsia Musc Reports no additional complaints Skin/Breast Denies rash Neuro Reports no additional complaints, Reports vertigo and Reports dizziness Jesus Manuel/Lymph Denies lymphadenopathy Physical Exam Vital Signs: Last Vital Signs Pulse 97 06/08/25 14:33 BP 120/66 06/08/25 14:33 Pulse Ox 74 L 06/08/25 14:33 Oxygen Delivery Method Room Air 06/08/25 14:33 Const General: comfortable HEENT Head: Yes normocephalic Ears: TM abnormal retracted bilateral Throat: Yes posterior oropharynx abnormal and Yes postnasal drainage Eyes General: appearance normal, both eyes and all related structures Neck Neck: Yes supple Chest Chest palpation & inspection: normal inspection of the chest Resp Effort & Inspection: normal respiratory effort Auscultation: clear to auscultation bilaterally and no wheezes Cardio Rate: regular rate Rhythm: regular rhythm Heart sounds: S1 normal heart sound present and S2 normal heart sound present GI Palpation (GI): Soft to palpation Skin General skin exam: no rashes or lesions noted Extrem General: Yes no clubbing, cyanosis or edema Assessment & Plan Assessment & Plan (1) Asthma: Code(s): J45.909 - Unspecified asthma, uncomplicated Category: Medical Qualifiers: Asthma complication type: uncomplicated Asthma persistence: intermittent Asthma severity: mild Qualified Code(s): J45.20 - Mild intermittent asthma, uncomplicated (2) Chronic allergic rhinitis: Code(s): J30.9 - Allergic rhinitis, unspecified Category: Medical (3) Cough: Code(s): R05.9 - Cough, unspecified Category: Medical Qualifiers: Cough type: chronic Qualified Code(s): R05.3 - Chronic cough (4) Bronchitis: Code(s): J40 - Bronchitis, not specified as acute or chronic Category: Medical (5) Allergies: Code(s): T78.40XA - Allergy, unspecified, initial encounter Category: Medical Qualifiers: Encounter type: initial encounter Qualified Code(s): T78.40XA - Allergy, unspecified, initial encounter Plan FRANCESCO as needed tessalon pearls as needed continue Fluticasone nasal spray cotinue Wixela Bloodwork and allergy testing consider Biologics: Xolair start Chlorpherinamine BID continue singulair PM mucinex F/U 4-6 months Orders: Orders Basic Metabolic Panel Today J40 - Bronchitis, not specified as acute or chronic, J45.20 - Mild intermittent asthma, uncomplicated, R05.3 - Chronic cough, T78.40XA - Allergy, unspecified, initial encounter Resp Allergy Profile Region I Today J40 - Bronchitis, not specified as acute or chronic, J45.20 - Mild intermittent asthma, uncomplicated, R05.3 - Chronic cough, R91.1 - Solitary pulmonary nodule, T78.40XA - Allergy, unspecified, initial encounter Immunoglobulin E Today J40 - Bronchitis, not specified as acute or chronic, J45.20 - Mild intermittent asthma, uncomplicated, R05.3 - Chronic cough, T78.40XA - Allergy, unspecified, initial encounter Immunoglobulins,IgG IgA IgM Today J40 - Bronchitis, not specified as acute or chronic, J45.20 - Mild intermittent asthma, uncomplicated, R05.3 - Chronic cough, T78.40XA - Allergy, unspecified, initial encounter Complete Blood Count Auto Diff Today J40 - Bronchitis, not specified as acute or chronic, J45.20 - Mild intermittent asthma, uncomplicated, R05.3 - Chronic cough, T78.40XA - Allergy, unspecified, initial encounter Erythrocyte Sedimentation Rate Today J40 - Bronchitis, not specified as acute or chronic, J45.20 - Mild intermittent asthma, uncomplicated, R05.3 - Chronic cough, T78.40XA - Allergy, unspecified, initial encounter Hypersensitive Pneumonitis Prf Today J40 - Bronchitis, not specified as acute or chronic, J45.20 - Mild intermittent asthma, uncomplicated, R05.3 - Chronic cough, R91.8 - Other nonspecific abnormal finding of lung field, T78.40XA - Allergy, unspecified, initial encounter Medications: New chlorpheniramine maleate ER 12 mg PO Q12H PRN 60 tabs 3RF itching 30 days Coding Level of Care Code Est Pt Level 4 (37181) Diagnoses Mild intermittent asthma without complication J45.20 Asthma complication type: uncomplicated Asthma persistence: intermittent Asthma severity: mild Chronic allergic rhinitis J30.9 Chronic cough R05.3 Cough type: chronic Bronchitis J40 Allergy, initial encounter T78.40XA Encounter type: initial encounter Time Spent (min) 17
--- OUTSIDE RECORDS SUMMARY | 2025-06-08 17:50 | XMS_ITS | Clinical Summary ---
Author Organization [facility] Address [address] [place] [address] Phone Care Team Providers Care Floor Press Operator Name Role Phone Maxwell Landon MD Primary [...] 2025 10/20/2020, 09/12/2020 Influenza Vaccine (#1) 2025 4, 05/31/2023, 02/20/2019, [...] probability of hip fracture of 1.7%. Code 77082 -------- FINAL REPORT -------- Dictated By: Radhames Negron Dictated Date: 10/24/2024 11:33 ET Assigned Physician: Radhames Negron Reviewed and Electronically Signed By: Radhames Negron Signed Date: 10/24/2024 11:34 ET Workstation ID: [id number] Transcribed By: Self Edit Transcribed Date: 10/24/2024 [...] density of the femurs bilaterally is 0.975 gm/[id number] is 97% of that of young normals [...] probability of hip fracture of 1.7%. Code 02001 -------- FINAL REPORT -------- Dictated By: Radhames Negron Dictated Date: 10/24/2024 11:33 ET Assigned Physician: Radhames Negron Reviewed and Electronically Signed By: Radhames Negron Signed Date: 10/24/2024 11:34 ET Workstation ID: [id number] Transcribed By: Self Edit Transcribed Date: 10/24/2024 11:33 ET Maxwell Landon MD IMG DXA PROCEDURES Final Res ult * [facility] SCREENING DIGITAL (03/12/2024 11:32 AM EDT) Anatomical Region Laterality Modality Mammography 03/12/2024 8:28 AM EDT Narrative 03/12/2024 11:32 AM EDT [facility] Diagnostic Imaging Department [address] [place] [id number] Patient: TAN SIMMONS/Age/Sex: 1955 - 68 - F Unit#: [id number] Location/Status: SPDIMAM/REG CLI Mnemonic/Ordering Site: [facility] Ordering Physician: MAXWELL LANDON MD [facility] Screening Digital - 03/12/24 - 0850 Report Status:Signed EXAM: [facility] Screening Digital EXAM DATE AND TIME: 03/12/2024 8:50 AM HISTORY: Screening. Paternal cousin had breast carcinoma. COMPARISON: 03/09/23, 03/06/22, 03/02/21 TECHNIQUE: Bilateral digital breast tomosynthesis was performed in the CC and MLO projections. Computer aided detection with JetSuite 3D 3.1 was employed. TISSUE DENSITY: b. [...] Mammogram performed at [facility] [address] [place] [address] Dictating Physician: FIORELLA HUHGES MD Electronically Signed by: FIORELLA HUGHES MD Dic Date/Time: 03/12/24 1132 Sign date/Time: 03/12/24 1132 Procedure Note Fiorella Hughes MD - 04/02/2024 [facility] Diagnostic Imaging Department [address] [place] [address] Patient: TAN SIMMONS /Age/Sex: 1955 - 68 - F Unit#: [id number] Location/Status: SPDIMAM/REG CLI Mnemonic/Ordering Site: [facility] Ordering Physician: MAXWELL LANDON MD [facility] Screening Digital - 03/12/24 - 0850 Report Status:Signed EXAM: [facility] Screening Digital EXAM DATE AND TIME: 03/12/2024 8:50 AM HISTORY: Screening. Paternal cousin had breast carcinoma. COMPARISON: 03/09/23, 03/06/22, 03/02/21 TECHNIQUE: Bilateral digital breast tomosynthesis was performed in the CCand MLO projections. Computer aided detection with JetSuite 3D 3.1was employed. TISSUE DENSITY: b. There [...] Mammogram performed at [facility] [place] [address] Dictating Physician: FIORELLA HUGHES MD Electronically Signed by: FIORELLA HUGHES MD Dic Date/Time: 03/12/24 1132 Sign date/Time: 03/12/24 1132 Maxwell Landon MD IMG BI PROCEDURES Final Resu lt from Last 3 Months or Most Recently Relevant to Health Maintenance Insurance MEDICARE [facility] Care Teams Floor Press Operator Relationship Specialty Start Date End Date Maxwell Landon MD [address] [place] [id number] PCP - General Internal Medicine 06/06/24
--- OUTSIDE RECORDS SUMMARY | 2025-06-08 17:50 | XMS_ITS | Patient Health Record ---
Author Organization [facility] Address [address] [place] [address] Care Team Providers Care Cosmetic Sales Advisor Name Role Phone MAXWELL LANDON Primary Care Provider JOÃO RICE [phone] Allergies No Known Allergies Reason For Referral Reason Referral to [facility] Dr. Ayde Wilburn new patient colonoscopy and endoscopy. Send last colonoscopy over to them Diagnosis 1 Colon cancer screeni ng (Z12.11) Referral Organization [facility] Referring Provider First Name MAXWELL Referring Provider Last Name DIPESH Referring Provider Speciality Internal edicine Referral Priority Routine Reason [facility] refe rral for endoscopy at time of colonoscopy Diagnosis 1 Gastro-esophageal re flux disease without esophagitis (K21.9) Referral Organization [facility] Referring Provider First Name MAXWELL Referring Provider Last Name DIPESH Referring Provider Speciality Internal edicine Referral Priority Routine Medications Medication SIG (Take, Route, Frequency, Duration) Notes Start Date End Date Status Omeprazole 20 MG Capsule Delayed Release 1 cap(s) orally as needed only Active Azelastine HCl 137 MCG/SPRAY Solution 2 puffs (1 spray in each nostril) Nasally Twice a day; Duration: 30 day(s) Active Rosuvastatin Calcium 20 MG Tablet 1 tablet Orally Once a day; Duration: 90 days qod Active Montelukast Sodium 10 MG Tablet 1 tablet orally Once a day; Duration: 90 DAY(S) Active Flovent HFA 110 MCG/ACT Aerosol 2 puffs Inhalation Twice a day; Duration: 30 day(s) Active Ventolin HFA 108 (90 Base) MCG/ACT Aerosol Solution 2 puffs Inhalation q6 hours prn Active Diclofenac Sodium 50 MG Tablet Delayed Release 1 tablet as needed Orally Twice a day 05/22/2025 Active Immunizations Vaccine Route Administration Date Status Comme nts Influenza, Fluzone HD 65+ IM Intramuscular 05/31/2023 Admi nistered Influenza, Fluzone HD 65+ IM Intramuscular 06/05/2024 Admi nistered Social History Tobacco Use: Social History Observation Description Date Details (start date - stop date) Never Smoker NA - NA Social History Tobacco Use: Social Info Question Answer Notes Smoking Are you a: never smoker Additional Details Category Social Info Options Details General 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 asbestos exposure: no Past year's travels: [place] alcohol use: yes 1-2x/week will h ave about 1-2 drinks drug use: no Hobbies/Exercise habits: prior a erobics, some walking Coffee/Tea/Soda: coffee 1-2 cups daily Marital Status experience no Living with Pets none smokers in household no Section Notes: smoked from age 13 - 18 smoked from age 13 - 18 smoked from age 13 - 18 smok ed 1/2 pack a day smoked from age 13 - 18 smoked from age 13 - 20 smok ed 1/2 pack a day smoked from age 13 - 18 smoked from age 13 - 18 smoked from age 13 - 20 smok ed 1/2 pack a day smoked from age 13 - 20 smoked from age 13 - 18 Problems Problem Type SNOMED Code ICD Code Onset Dates Problem Status W/U Status Risk Notes Problem Asthma (906880895) Asthma (493.90) Active confi rmed Problem Gastroesophageal reflux disease (disorder) (953833358) GERD [Gastroesophageal reflux disease] (530.81) Active confirmed Problem Postnasal drip (69534482) POSTNASAL DRIP (784.91) Active confirmed Problem Essential hypertension (98323317) Essential (primary) hypertension (I10) Active confirmed Problem Heartburn (70857275) Heartburn (R12) Active confirmed Problem Arthralgia of the pelvic region and thigh (730413252) Right hip pain (M25.551) Active confirmed Problem Asthma (081238349) Asthma (J45.909) Active conf irmed Problem Chronic fatigue syndrome (disorder) (61421658) Chronic fatigue, unspecified (R53.82) Active confirmed Problem Trochanteric bursitis of right hip (985669888625746) Trochanteric bursitis, right hip (M70.61) Active confirmed Problem Pain of right knee region (finding) (691230170618935) Pain in right knee (M25.561) Active confirmed Problem Disorder of lipoprotein storage and metabolism (disorder) (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, unspecified (E78.9) Active confirmed Problem Age-related osteoporosis (820659719) Age-related osteoporosis without current pathological fracture (M81.0) Active confirmed Problem Gastroesophageal reflux disease without esophagitis (447492530) Gastroesophageal reflux disease without esophagitis (K21.9) Active confirmed Problem Osteoarthritis of knee (646406324) Primary osteoarthritis of right knee (M17.11) Active confirmed Problem Sacroiliitis (50528868) Sacroiliitis (M46.1) Active confirmed Problem Localized, primary osteoarthritis of the pelvic region and thigh (000399551) Primary osteoarthritis of right hip (M16.11) Active confirmed Problem Generalized anxiety disorder (18324909) Anxiety, generalized (F41.1) Active confirmed Problem Irritable bowel syndrome (82144935) Irritable bowel syndrome, unspecified type (K58.9) Active confirmed Problem Exacerbation of intermittent asthma (543956906) Mild intermittent asthma with exacerbation (J45.21) Active confirmed Problem Enthesopathy of knee (30100691) Pes anserine bursitis (M70.50) Active confirmed Problem Allergic rhinitis (90683234) Allergic rhinitis, unspecified seasonality, unspecified trigger (J30.9) Active confirmed Vital Signs Blood pressure diastolic 74 mm Hg 05/22/2025 Height 66.25 in 05/22/2025 Blood pressure systolic 120 mm Hg 05/22/2025 Weight 188.4 lbs 05/22/2025 BMI 30.18 kg/m2 05/22/2025 Encounters Encounter Location Date Provider Diagnosis [facility] [address] [place] [address] 12/09/2024 MAXWELL LANDON Disorder of lipoprotein metabolism, unspecified E78.9 ; Essential (primary) hypertension I10 ; Chronic fatigue, unspecified R53.82 ; Asthma J45.909 ; Gastro-esophageal reflux disease without esophagitis K21.9 ; Anxiety, generalized F41.1 ; Colon cancer screening Z12.11 and Allergy, unspecified, initial encounter T78.40XA [facility] [address] [place] [address] 11/12/2024 JOÃO RICE Mild intermittent asthma with exacerbation J45.21 and Allergic rhinitis, unspecified seasonality, unspecified trigger J30.9 [facility] [address] [place] [phone] 05/22/2025 JOÃO RICE Sacroiliitis M46.1 [facility] [address] [place] [address] 10/23/2024 JOÃO RICE Allergic rhinitis, unspecified seasonality, unspecified trigger J30.9 and Mild intermittent asthma with exacerbation J45.21 [facility] [address] [place] [phone] 05/19/2025 MAXWELL LANDON [facility] [address] [place] [phone] 03/31/2025 MAXWELL LANDON Disorder of lipoprotein metabolism, unspecified E78.9 [facility] [address] [place] [phone] 02/05/2025 MAXWELL LANDON Disorder of lipoprotein metabolism, unspecified E78.9 [facility] [address] [place] [address] 12/10/2024 MAXWELL LANDON [facility] [address] [place] [phone] 12/10/2024 MAXWELL LANDON Disorder of lipoprotein metabolism, unspecified E78.9 [facility] [address] [place] [phone] 12/09/2024 MAXWELL LANDON [facility] [address] [place] [phone] 12/09/2024 MAXWELL LANDON [facility] [address] [place] [phone] 11/11/2024 JOÃO RICE [facility] [address] [place] [phone] 11/05/2024 MAXWELL LANDON [facility] [address] [address] 11/05/2024 MAXWELL LANDON [facility] [address] [address] 11/05/2024 MAXWELL LANDON [facility] [address] [address] 11/05/2024 MAXWELL LANDON Persistent cough R05.3 [facility] [address] [place] [address] 10/27/2024 MAXWELL LANDON [facility] [address] [place] [address] 10/23/2024 MAXWELL LANDON [facility] [address] [place] [address] 10/23/2024 MAXWELL LANDON [facility] [address] [place] [address] 06/26/2024 MAXWELL LANDON Assessments Encounter Date Diagnosis (ICD Code) Assessment Notes Treatment Notes Treatment Clinical Notes Section Notes 10/23/2024 Mild intermittent asthma with exacerbation (ICD-10 - J45.21) Prednisone taper as prescribed. Continue Flovent and Ventolin as directed. Humidifier. Continue Singulair 10 mg daily. Follow-up if no improvement in 7 to 10 days, sooner if worsening. 10/23/2024 Allergic rhinitis, unspecified seasonality, unspecified trigger (ICD-10 - J30.9) Prednisone taper as directed. Azelastine nasal spray 1 spray each nostril twice a day, Singulair 10 mg daily. Saline nasal sprays 2 sprays each nostril 4-6 times a day. Salt water gargles. Humidifier. Plenty of liquids. Tylenol as needed. Follow-up if no improvement in 7 to 10 days, sooner if worsening. 11/12/2024 Mild intermittent asthma with exacerbation (ICD-10 - J45.21) Prednisone taper as prescribed. Make sure to use the Flovent 2 puffs twice a day swish and spit/brush teeth after on a daily basis. Albuterol as needed. Continue Singulair as prescribed. Follow-up with pulmonology when scheduled but can call to see about sooner appointment. Plenty of fluids. Humidifier. Salt water gargles and throat lozenges as discussed. 11/12/2024 Allergic rhinitis, unspecified seasonality, unspecified trigger (ICD-10 - J30.9) Prednisone taper as prescribed. Azelastine nasal spray 1 spray each nostril twice a day. Start Flonase nasal spray 2 sprays each nostril at bedtime. Restart Zyrtec 1 tablet daily. Saline 0.9% nasal sprays 2 sprays each nostril 4-6 times a day. Salt water gargles and throat lozenges as discussed. Follow-up with credit and collections analyst when scheduled. 12/09/2024 Essential (primary) hypertension (ICD-10 - I10) Blood pressure under good control. No change. No added salt diet walk 30 minutes a day check EKG normal sinus rhythm 12/10/2024 Disorder of lipoprotein metabolism, unspecified (ICD-10 - E78.9) 03/31/2025 Disorder of lipoprotein metabolism, unspecified (ICD-10 - E78.9) 05/22/2025 Sacroiliitis (ICD-10 - M46.1) X-ray ordered. Exercises given. Diclofenac 50 mg 1 tablet twice a day with food as needed. Ice and heat to area as discussed. Can consider referral to physical therapy if no improvement. Follow-up if no improvement in 2 to 4 weeks, sooner if worsening. Sacroiliac Joint Pain: Care Instructions material was printed, Sacroiliac Pain: Exercises material was printed 12/09/2024 Disorder of lipoprotein metabolism, unspecified (ICD-10 - E78.9) Stable. Continue statin therapy check lipid profile LDL goal less than 100 follow-up in 6 months 02/05/2025 Disorder of lipoprotein metabolism, unspecified (ICD-10 - E78.9) 11/05/2024 Persistent cough (ICD-10 - R05.3) 12/09/2024 Chronic fatigue, unspecified (ICD-10 - R53.82) Stable physical exam review of systems doing well check routine labs 12/09/2024 Asthma (ICD-10 - J45.909) Stable. Recommend taking the Flovent on a regular basis twice daily which she has not been doing. Use as needed Ventolin. Physical exam stable. Will await follow-up with pulmonary 12/09/2024 Gastro-esophageal reflux disease without esophagitis (ICD-10 - K21.9) Will set patient up with [facility] for colonoscopy and endoscopy 12/09/2024 Anxiety, generalized (ICD-10 - F41.1) Stable doing well 12/09/2024 Colon cancer screening (ICD-10 - Z12.11) Set up consultation [facility] 12/09/2024 Allergy, unspecified, initial encounter (ICD-10 - T78.40XA) Follow-up pulmonary. Check CBC. Continue Singulair Plan Of Treatment Pending Test Test Name Order Date US Abdomen Complete 05/31/2023 CT Head (Brain) without IV contrast 11/16 XR Sacroiliac Joints 05/22/2025 Future Test Test Name Order Date Lipid Panel-[id number] 03/25/2024 Urine Culture, Routine-[id number] 06/09/2024 Lipid Panel-[id number] 05/12/2025 Next Appt Details Provider Name:JEFFREY Hernandez, 06/25/2025 02:30:00 PM, [address] [place] [address], [phone], Provider Name:MAXWELL PEACE, 06/25/2025 03:00:00 PM, [address] [place] [address], [phone], Insurance Providers Payer Name Payer Address Payer Phone Subscriber Number Group Number Insured Name Patient Relationship to Insured Coverage Start Date Coverage End Date MEDICARE [facility] [employer] [address] [place] [address] [id number] TAN SIMMONS Self - patient is the insured 9 [employer] [facility] [address] [place] [address] [phone] [id number] TAN SIMMONS Self - patient is the insured 9 Medical (General) History Medical History History ICD Code asthma high cholesterol depression allergies environmental Colonoscopy 10-04-15 Sig tics. osteoarthritis R Hip and Knee EGD 11/05/2018 - Normal Colonoscopy March 2016 Mammogram 2022 Bone density February [address] Murphy OV May 2023 Immunization status COVID 2 shots. Flu shot today. Status post PPSV23 and PCV 13. Tdap 2018. Shingrix 2 shots. Upper endoscopy 2018 negative IBS Mammogram February [address] November 2023 negative Bone density 2024. Osteopenia major frac ture FRAX report 14.5% hip 1.7% Chest x-ray October 2024 no active disease Head CT October 2024 no acute disease Ultrasound May 2024 negative Surgical History Surgery Date(Month/Year) CERVICAL DISC 1991 Knee arthroscopy ? L [address] Loo 2016 Hospitalization History Reason Date(Month/Year) see above (cerv. disc)
--- OUTSIDE RECORDS SUMMARY | 2025-06-08 17:50 | XMS_ITS ---
Author Name [facility] Organization Unknown Problems Problem Status Onset Date Problem Type Date of Resoluti on Source Recurrent vertigo [facility]
== END 2025-06-08 15:03 | disposition home or self-care (01) ==
LOC: HO.HPS 14:23
PROVIDERS: PCP Internal Medicine; Visit Provider Hospitalist
DX: J45.20 Mild intermittent asthma, uncomplicated (principal); J30.9 Allergic rhinitis, unspecified; R05.3 Chronic cough; J40 Bronchitis, not specified as acute or chronic; T78.40XA Allergy, unspecified, initial encounter
CPT/HCPCS: 99214